=== PATIENT | female | born 1945 | race Caucasian/White ===

== ENCOUNTER 2021-03-03 11:55 | Emergency (ER) | payer MEDICARE, BC ==
[2021-03-03] MEDS ORDERED: Sodium Chloride 0.9% 10 ML Syringe FLUSH PRN (12:39)
--- NOTE | 2021-03-03 14:01 | EDM.PDOC ---
ED HPI GENERAL MEDICAL PROBLEM - General Chief Complaint: Diabetic Complaint Stated Complaint: [facility] Time Seen by Provider: 03/03/21 12:22 Source of Information: Reports: Patient History Limitations: Reports: No Limitations - History of Present Illness INITIAL COMMENTS - FREE TEXT/NARRATIVE: 75-year-old female presents the emergency department by way of [facility] with complaints of hypoglycemia. She states that she woke this morning and was unable to move her left side of her body. She then called the ambulance and when they arrived her blood sugar was 23. They did give her oral glucose tablets x 4 doses and blood sugar came up to 59 when she arrived in the emergency department. She states she feels 100% better and is not having any left-sided deficits. All of her weakness has resolved. Patient states that she takes 2 mg of glyburide daily and she does not check her blood sugars routinely. She states that prior to this morning she felt just fine. She has not had any recent fever, chills, nausea, vomiting or diarrhea. She denies having any cough or shortness of breath. She does admit to smoking daily. She is a [id number] smoker. She states her primary care provider is Dr. Pastor. Treatments SITE PLANNER: Reports: Glucagon - Related Data Allergies Allergy/AdvReac Type Severity Reaction Status Date / Time No Known Allergies Allergy Verified 03/03/21 12:15 Home Meds: Home Meds Calcium Carbonate [Calcium] 600 mg PO DAILY 03/03/21 [History] Cholecalciferol (Vitamin D3) [Vitamin D3] 1,000 unit PO DAILY 03/03/21 [History] Clopidogrel [Plavix] 75 mg PO DAILY 03/03/21 [History] Docusate Sodium 100 mg PO DAILY 03/03/21 [History] Flaxseed Oil 1 tab PO DAILY 03/03/21 [History] Gabapentin [Neurontin] 300 mg PO BEDTIME 03/03/21 [History] Glimepiride 2 mg PO DAILY 03/03/21 [History] Pantoprazole Sodium 40 mg PO DAILY 03/03/21 [History] Twe699/Iron/FA/O3/Dha/Epa/Fish [ Multi-Dha Softgel] 1 each PO DAILY 03/03/21 [History] Rosuvastatin Calcium 20 mg PO DAILY 03/03/21 [History] Sennosides [Senna Lax] 8.6 mg PO BID 03/03/21 [History] Sertraline HCl 25 mg PO DAILY 03/03/21 [History] calcium polycarbophiL [Fibercon] 1 tab PO DAILY 03/03/21 [History] traMADol HCl [Tramadol HCl] 100 mg PO Q6H 03/03/21 [History] Past Medical History HEENT History: Reports: Impaired Vision Cardiovascular History: Reports: High Cholesterol Respiratory History: Reports: COPD Gastrointestinal History: Reports: GERD 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 Carotid artery "cleaned out." Social & Family History - Tobacco Use Tobacco Use Status *Q: Current Every Day Tobacco User Years of Tobacco use: 60 Packs/Tins Daily: 0.1 - Caffeine Use Caffeine Use: Reports: Coffee - Recreational Drug Use Recreational Drug Use: No ED ROS GENERAL - Review of Systems Review Of Systems: Comprehensive ROS is negative, except as noted in HPI. ED EXAM GENERAL NO PERIP PULSE - Physical Exam Exam: See Below Exam Limited By: No Limitations General Appearance: Alert, WD/WN, No Apparent Distress Eye Exam: Bilateral Eye: EOMI, PERRL Ears: Normal External Exam, Hearing Grossly Normal Nose: Normal Inspection, Normal Mucosa Throat/Mouth: Normal Inspection, Normal Lips, Normal Voice, No Airway Compromise. No: Normal Oropharynx (Dry, tongue is black and likely due to smoking) Head: Atraumatic, Normocephalic Neck: Normal Inspection, Supple, Non-Tender Respiratory/Chest: No Respiratory Distress, Lungs Clear, Normal Breath Sounds, No Accessory Muscle Use, Chest Non-Tender Cardiovascular: Normal Peripheral Pulses, Regular Rate, Rhythm, No Edema, No Murmur GI/Abdominal: Normal Bowel Sounds, Soft, Non-Tender, No Distention (Female) Exam: Deferred Rectal (Female) Exam: Deferred Back Exam: Normal Inspection, Full Range of Motion Extremities: Normal Inspection, Normal Range of Motion, Non-Tender, No Pedal Edema, Normal Capillary Refill Neurological: Alert, Oriented, CN II-XII Intact, Normal Cognition, Normal Gait Psychiatric: Normal Affect, Normal Mood Skin Exam: Warm, Dry, Intact, Normal Color, No Rash Lymphatic: No Adenopathy Course - Vital Signs Text/Narrative:: As stated above, patient had a blood sugar of 23 upon waking this morning. She states she had left-sided deficits however when she was treated for her hypoglycemia deficits all resolved. When she arrived in the emergency department blood sugar was 59. Ordered for the patient to have some orange juice and crackers and we will recheck her blood sugar. Have also ordered labs to include a CBC, CMP, CRP, and a hemoglobin A1c. We will also get a urinalysis with micro and culture if indicated. Patient states she feels back to her baseline. Last Recorded V/S: Last Vital Signs Temp 96.5 F L 03/03/21 12:12 Pulse 69 03/03/21 12:12 Resp 16 03/03/21 12:12 BP 153/47 H 03/03/21 12:12 Pulse Ox 96 03/03/21 12:12 - Orders/Labs/Meds Orders: Active Orders 24 hr Category Date Time Status Sodium Chloride 0.9% [Saline Flush] Med 03/03/21 12:39 Active 10 ml FLUSH ASDIRECTED PRN Saline Lock Insert [OM.PC] Stat Oth 03/03/21 12:39 Ordered Medication Orders Sodium Chloride (Sodium Chloride 0.9% 10 Ml Syringe) 10 ml FLUSH ASDIRECTED PRN PRN Reason: Keep Vein Open Last Admin: 03/03/21 13:43 Dose: 10 ml Documented by: OPAL Labs: Laboratory Tests 03/03/21 03/03/21 03/03/21 Range/Units 12:03 12:05 12:05 WBC 8.24 (3.98-10.04) K/mm3 RBC 4.71 (3.98-5.22) M/mm3 Hgb 14.1 D (11.2-15.7) gm/dl Hct 43.1 (34.1-44.9) % MCV 91.5 (79.4-94.8) fl MCH 29.9 (25.6-32.2) pg MCHC 32.7 (32.2-35.5) g/dl RDW Std Deviation 55.6 H (36.4-46.3) fL Plt Count 171 L (182-369) K/mm3 MPV 10.7 (9.4-12.3) fl Neut % (Auto) 74.2 H (34.0-71.1) % Lymph % (Auto) 19.4 (19.3-51.7) % Tyrrell % (Auto) 5.9 (4.7-12.5) % Eos % (Auto) 0.2 L (0.7-5.8) Baso % (Auto) 0.1 (0.1-1.2) % Neut # (Auto) 6.10 (1.56-6.13) K/mm3 Lymph # (Auto) 1.60 (1.18-3.74) K/mm3 Tyrrell # (Auto) 0.49 H (0.24-0.36) K/mm3 Eos # (Auto) 0.02 L (0.04-0.36) K/mm3 Baso # (Auto) 0.01 (0.01-0.08) K/mm3 Sodium 145 (136-145) mEq/L Potassium 4.5 (3.5-5.1) mEq/L Chloride 107 (98-107) mEq/L Carbon Dioxide 31 (21-32) mEq/L Anion Gap 11.5 (5-15) BUN 12 (7-18) mg/dL Creatinine 0.7 (0.55-1.02) mg/dL Est Cr Clr Drug Dosing 50.22 mL/min Estimated GFR (MDRD) > 60 (>60) mL/min BUN/Creatinine Ratio 17.1 (14-18) Glucose 84 (70-99) mg/dL POC Glucose 59 L (70-99) mg/dL Hemoglobin A1c ( - 5.6) % Calcium 10.4 H D (8.5-10.1) mg/dL Magnesium 2.0 (1.8-2.4) mg/dL Total Bilirubin 0.2 (0.2-1.0) mg/dL AST 23 (15-37) U/L ALT 18 (14-59) U/L Alkaline Phosphatase 84 (46-116) U/L C-Reactive Protein 0.5 (<1.0) mg/dL Total Protein 7.9 (6.4-8.2) g/dl Albumin 3.6 (3.4-5.0) g/dl Globulin 4.3 gm/dL Albumin/Globulin Ratio 0.8 L (1-2) Urine Color (Yellow) Urine Appearance (Clear) Urine pH (5.0-8.0) Ur Specific Anabel (1.005-1.030) Urine Protein (Negative) Urine Glucose (UA) (Negative) Urine Ketones (Negative) Urine Occult Blood (Negative) Urine Nitrite (Negative) Urine Bilirubin (Negative) Urine Urobilinogen (0.2-1.0) Ur Leukocyte Esterase (Negative) 03/03/21 03/03/21 03/03/21 Range/Units 12:27 12:39 14:03 WBC (3.98-10.04) K/mm3 RBC (3.98-5.22) M/mm3 Hgb (11.2-15.7) gm/dl Hct (34.1-44.9) % MCV (79.4-94.8) fl MCH (25.6-32.2) pg MCHC (32.2-35.5) g/dl RDW Std Deviation (36.4-46.3) fL Plt Count (182-369) K/mm3 MPV (9.4-12.3) fl Neut % (Auto) (34.0-71.1) % Lymph % (Auto) (19.3-51.7) % Tyrrell % (Auto) (4.7-12.5) % Eos % (Auto) (0.7-5.8) Baso % (Auto) (0.1-1.2) % Neut # (Auto) (1.56-6.13) K/mm3 Lymph # (Auto) (1.18-3.74) K/mm3 Tyrrell # (Auto) (0.24-0.36) K/mm3 Eos # (Auto) (0.04-0.36) K/mm3 Baso # (Auto) (0.01-0.08) K/mm3 Sodium (136-145) mEq/L Potassium (3.5-5.1) mEq/L Chloride (98-107) mEq/L Carbon Dioxide (21-32) mEq/L Anion Gap (5-15) BUN (7-18) mg/dL Creatinine (0.55-1.02) mg/dL Est Cr Clr Drug Dosing mL/min Estimated GFR (MDRD) (>60) mL/min BUN/Creatinine Ratio (14-18) Glucose (70-99) mg/dL POC Glucose 185 H (70-99) mg/dL Hemoglobin A1c 6.0 H ( - 5.6) % Calcium (8.5-10.1) mg/dL Magnesium (1.8-2.4) mg/dL Total Bilirubin (0.2-1.0) mg/dL AST (15-37) U/L ALT (14-59) U/L Alkaline Phosphatase (46-116) U/L C-Reactive Protein (<1.0) mg/dL Total Protein (6.4-8.2) g/dl Albumin (3.4-5.0) g/dl Globulin gm/dL Albumin/Globulin Ratio (1-2) Urine Color Yellow (Yellow) Urine Appearance Clear (Clear) Urine pH 7.5 (5.0-8.0) Ur Specific Anabel 1.020 (1.005-1.030) Urine Protein Negative (Negative) Urine Glucose (UA) Negative (Negative) Urine Ketones Negative (Negative) Urine Occult Blood Negative (Negative) Urine Nitrite Negative (Negative) Urine Bilirubin Negative (Negative) Urine Urobilinogen 0.2 (0.2-1.0) Ur Leukocyte Esterase Negative (Negative) Meds: Medications Generic Name Dose Route Start Last Admin Trade Name Freannette PRN Reason Stop Dose Admin Sodium Chloride 10 ml 03/03/21 12:39 03/03/21 13:43 Sodium Chloride 0.9% 10 Ml Syringe FLUSH 10 ml ASDIRECTED PRN Administration Keep Vein Open Discontinued Medications Generic Name Dose Route Start Last Admin Trade Name Freannette PRN Reason Stop Dose Admin Acetaminophen 650 mg 03/03/21 14:22 Acetaminophen 325 Mg Tab PO 03/03/21 14:23 NOW ONE Tramadol HCl 100 mg 03/03/21 14:22 Tramadol 50 Mg Tab PO 03/03/21 14:23 ONETIME ONE - Re-Assessments/Exams Free Text/Narrative Re-Assessment/Exam: 03/03/21 14:24 Hematology reveals a WBC of 8.24, hemoglobin 14.1, hematocrit 43.1, platelet count 171 Chemistry reveals a sodium of 145, potassium of 45, carbon dioxide 31, anion gap 11.5, BUN 12, creatinine 0.7, glucose 84, hemoglobin A1c 6.0, calcium 10.4, magnesium 2.0, C-reactive protein 0.5 Urinalysis is unremarkable. 03/03/21 14:24 Patient is requesting her home dose of tramadol and Tylenol for back pain. 03/03/21 14:25 I spoke with the patient's primary care provider, Dr. Pastor, and he states it would be appropriate to discontinue the patient's Amaryl for now. She will need to follow-up with him in about a week for reevaluation. I discussed this with the patient and she does verbalize understanding. She will then be discharged to home. Departure - Departure Time of Disposition: 14:27 Disposition: Home, Self-Care 01 Condition: Good Clinical Impression: Hypoglycemia - Discharge Information Instructions: Hypoglycemia, [id number] Referrals: Jomar Terrazas MD [Primary Care Provider] - Forms: ED Department Discharge Additional Instructions: You were seen in the emergency department today with low blood sugar. By the time he arrived to the emergency department your blood sugar was 59. You were given crackers and juice to drink and this did bring your blood sugar up. You state that all of the strokelike symptoms that you initially felt this morning upon waking had resolved once your blood sugar returned to normal. Labs were completed which did not show anything remarkable. There is no sign of infection anywhere. Urine was collected and this was unremarkable. There is no sign of infection in your urine. You will need to stop taking your glimepiride, your diabetic medication, until you follow-up with Dr. Pastor in 1 week. It would be a good idea to check your blood sugar a couple of times daily and keep a log of this to bring to your appointment with Dr. Pastor. Should your condition worsen or change, do not hesitate returning to the emergency department. Sepsis Event Note (ED) - Evaluation Sepsis Screening Result: No Definite Risk - Focused Exam Vital Signs: Vital Signs Temp Pulse Resp BP Pulse Ox 03/03/21 12:12 96.5 F L 69 16 153/47 H 96 - My Orders Last 24 Hours: My Active Orders 03/03/21 12:39 Sodium Chloride 0.9% [Saline Flush] 10 ml FLUSH ASDIRECTED PRN Saline Lock Insert [OM.PC] Stat - Assessment/Plan Last 24 Hours: My Active Orders 03/03/21 12:39 Sodium Chloride 0.9% [Saline Flush] 10 ml FLUSH ASDIRECTED PRN Saline Lock Insert [OM.PC] Stat
[2021-03-03] MEDS ORDERED: traMADol 50 MG Tab PO ONE (14:22)
[2021-03-03] MEDS ORDERED: Acetaminophen 325 MG Tab PO ONE (14:22)
== END 2021-03-03 14:45 | disposition home or self-care (01) ==
LOC: JD.ED 11:55
DX: E16.2 Hypoglycemia, unspecified (principal); E78.00 Pure hypercholesterolemia, unspecified; J44.9 Chronic obstructive pulmonary disease, unspecified; K21.9 Gastro-esophageal reflux disease without esophagitis; F17.210 Nicotine dependence, cigarettes, uncomplicated; Z79.01 Long term (current) use of anticoagulants; Z79.02 Long term (current) use of antithrombotics/antiplatelets; Z79.899 Other long term (current) drug therapy
CPT/HCPCS: 36415; 80053; 81003; 82947; 83036; 83735; 85025; 86140; 99284; A9270; 99283

== ENCOUNTER 2021-05-20 16:54 | Emergency (ER) | payer MEDICARE, BC ==
[2021-05-20] MEDS ORDERED: Sodium Chloride 0.9% 10 ML Syringe FLUSH PRN (17:38)
[2021-05-20] MEDS ORDERED: Lidocaine/EPINEPHrine/Tetracaine Soln 1 ML TOP ONE (17:39)
--- NOTE | 2021-05-20 18:13 | EDM.PDOC ---
ED HPI GENERAL MEDICAL PROBLEM - General Chief Complaint: Lower Extremity Injury/Pain Stated Complaint: LEFT KNEE PAIN Time Seen by Provider: 05/20/21 17:14 Source of Information: Reports: Patient History Limitations: Reports: No Limitations - History of Present Illness INITIAL COMMENTS - FREE TEXT/NARRATIVE: The patient presents with a UTI and left knee redness and swelling. The patient said she noticed some redness and swelling to her left knee a few days ago and it is worse today. She has no fever or chills. She did not injure it in any way. She did get some foul smelling drainage out of it today. She has been having some urgency and burning with urination for a few days. She has no cough, congestion, runny nose, abdominal pain, nausea or vomiting. She was sen at the [facility] and sent over for more care. Onset: Gradual Duration: Day(s): Location: Reports: Lower Extremity, Right (knee) Quality: Reports: Sharp Severity: Moderate Improves with: Reports: Immobilization Worsens with: Reports: Movement Context: Denies: Trauma Associated Symptoms: Reports: No Other Symptoms Treatments NARCOTICS AND VICE DETECTIVE: Reports: Acetaminophen Left Knee Pain Score (Numeric/FACES): 9 - Related Data Allergies Allergy/AdvReac Type Severity Reaction Status Date / Time No Known Allergies Allergy Verified 05/20/21 17:19 Home Meds: Home Meds Calcium Carbonate [Calcium] 600 mg PO DAILY 03/03/21 [History] Cholecalciferol (Vitamin D3) [Vitamin D3] 1,000 unit PO DAILY 03/03/21 [History] Clopidogrel [Plavix] 75 mg PO DAILY 03/03/21 [History] Docusate Sodium 100 mg PO DAILY 03/03/21 [History] Gabapentin [Neurontin] 300 mg PO BEDTIME 03/03/21 [History] Glimepiride 2 mg PO DAILY 03/03/21 [History] Pantoprazole Sodium 40 mg PO DAILY 03/03/21 [History] Rosuvastatin Calcium 20 mg PO DAILY 03/03/21 [History] Sennosides [Senna Lax] 8.6 mg PO BID 03/03/21 [History] Sertraline HCl 25 mg PO DAILY 03/03/21 [History] calcium polycarbophiL [Fibercon] 1 tab PO DAILY 03/03/21 [History] flaxseed oiL [Flaxseed Oil] 1 tab PO DAILY 03/03/21 [History] traMADol HCl [Tramadol HCl] 100 mg PO Q6H 03/03/21 [History] cephALEXin [Keflex] 500 mg PO Q6H #40 cap 05/20/21 [Rx] Past Medical History HEENT History: Reports: Impaired Vision Cardiovascular History: Reports: High Cholesterol, Hypertension Respiratory History: Reports: COPD Gastrointestinal History: Reports: GERD 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 Carotid artery "cleaned out." Social & Family History - Tobacco Use Tobacco Use Status *Q: Current Every Day Tobacco User Years of Tobacco use: 55 Packs/Tins Daily: 0.2 - Caffeine Use Caffeine Use: Reports: Coffee - Recreational Drug Use Recreational Drug Use: No Review of Systems - Review of Systems Review Of Systems: See Below Constitutional: Reports: No Symptoms Eyes: Reports: No Symptoms Ears: Reports: No Symptoms Nose: Reports: No Symptoms Mouth/Throat: Reports: No Symptoms Respiratory: Reports: No Symptoms Cardiovascular: Reports: No Symptoms GI/Abdominal: Reports: No Symptoms Musculoskeletal: Reports: Other (Swelling and pain of right knee) ED EXAM, GENERAL - Physical Exam Exam: See Below Exam Limited By: No Limitations General Appearance: Alert, No Apparent Distress Ears: Normal External Exam Nose: Normal Inspection Head: Atraumatic, Normocephalic Neck: Normal Inspection Respiratory/Chest: No Respiratory Distress, Lungs Clear, Normal Breath Sounds Cardiovascular: Regular Rate, Rhythm, No Edema, No Murmur GI/Abdominal: Soft, Non-Tender, No Organomegaly, No Mass Back Exam: Normal Inspection Extremities: Other (Erythema and edema to the left knee with an area of fluctuance to the prepatelar region.) Neurological: Alert, Oriented, No Motor/Sensory Deficits ED TRAUMA EXTREMITY PROCEDURES - I&D Site: Left knee Skin Prep: Other (Chlor) Local Anesthesia: Lidocaine: Other (LET) Area Incised With: Needle Drainage: Purulent Probed to Break Up Loculations: No Complications: No Course - Vital Signs Last Recorded V/S: Last Vital Signs Temp 98.6 F 05/20/21 17:16 Pulse 72 05/20/21 17:16 Resp 16 05/20/21 17:16 BP 112/67 05/20/21 17:16 Pulse Ox 93 L 05/20/21 17:16 - Orders/Labs/Meds Orders: Active Orders 24 hr Category Date Time Status Cardiac Monitoring [RC] . DIRECTED Care 05/20/21 17:38 Active Peripheral IV Care [RC] . DIRECTED Care 05/20/21 17:39 Active BLOOD CULTURE [MREF] Stat Lab 05/20/21 18:10 Received BLOOD CULTURE [MREF] Stat Lab 05/20/21 18:20 Received Sodium Chloride 0.9% [Saline Flush] Med 05/20/21 17:38 Active 10 ml FLUSH ASDIRECTED PRN Blood Culture x2 Reflex Set [OM.PC] Stat Oth 05/20/21 17:39 Ordered Peripheral IV Insertion Adult [OM.PC] Stat Oth 05/20/21 17:38 Ordered Medication Orders Sodium Chloride (Sodium Chloride 0.9% 10 Ml Syringe) 10 ml FLUSH ASDIRECTED PRN PRN Reason: Keep Vein Open Labs: Laboratory Tests 05/20/21 05/20/21 05/20/21 Range/Units 18:10 18:10 18:10 WBC 10.49 H (3.98-10.04) K/mm3 RBC 3.80 L (3.98-5.22) M/mm3 Hgb 11.7 D (11.2-15.7) gm/dl Hct 35.5 (34.1-44.9) % MCV 93.4 (79.4-94.8) fl MCH 30.8 (25.6-32.2) pg MCHC 33.0 (32.2-35.5) g/dl RDW Std Deviation 57.4 H (36.4-46.3) fL Plt Count 127 L (182-369) K/mm3 MPV 10.8 (9.4-12.3) fl Neut % (Auto) 79.2 H (34.0-71.1) % Lymph % (Auto) 10.8 L (19.3-51.7) % Hand % (Auto) 9.7 (4.7-12.5) % Eos % (Auto) 0 L (0.7-5.8) Baso % (Auto) 0.1 (0.1-1.2) % Neut # (Auto) 8.31 H (1.56-6.13) K/mm3 Lymph # (Auto) 1.13 L (1.18-3.74) K/mm3 Hand # (Auto) 1.02 H (0.24-0.36) K/mm3 Eos # (Auto) 0.00 L (0.04-0.36) K/mm3 Baso # (Auto) 0.01 (0.01-0.08) K/mm3 Manual Slide Review Abnormal smear ESR (0-20) mm/hr Sodium 133 L D (136-145) mEq/L Potassium 3.5 (3.5-5.1) mEq/L Chloride 96 L (98-107) mEq/L Carbon Dioxide 30 (21-32) mEq/L Anion Gap 10.5 (5-15) BUN 23 H (7-18) mg/dL Creatinine 1.1 H (0.55-1.02) mg/dL Est Cr Clr Drug Dosing 34.81 mL/min Estimated GFR (MDRD) 48 (>60) mL/min BUN/Creatinine Ratio 20.9 H (14-18) Glucose 210 H (70-99) mg/dL Lactic Acid 1.2 (0.4-2.0) mmol/L Calcium 9.3 (8.5-10.1) mg/dL Total Bilirubin 0.4 (0.2-1.0) mg/dL AST 33 (15-37) U/L ALT 24 (14-59) U/L Alkaline Phosphatase 81 (46-116) U/L C-Reactive Protein 24.4 H* (<1.0) mg/dL Total Protein 6.7 (6.4-8.2) g/dl Albumin 2.8 L (3.4-5.0) g/dl Globulin 3.9 gm/dL Albumin/Globulin Ratio 0.7 L (1-2) SARS-CoV-2 RNA (KANE) (NEGATIVE) 05/20/21 05/20/21 Range/Units 18:10 18:17 WBC (3.98-10.04) K/mm3 RBC (3.98-5.22) M/mm3 Hgb (11.2-15.7) gm/dl Hct (34.1-44.9) % MCV (79.4-94.8) fl MCH (25.6-32.2) pg MCHC (32.2-35.5) g/dl RDW Std Deviation (36.4-46.3) fL Plt Count (182-369) K/mm3 MPV (9.4-12.3) fl Neut % (Auto) (34.0-71.1) % Lymph % (Auto) (19.3-51.7) % Hand % (Auto) (4.7-12.5) % Eos % (Auto) (0.7-5.8) Baso % (Auto) (0.1-1.2) % Neut # (Auto) (1.56-6.13) K/mm3 Lymph # (Auto) (1.18-3.74) K/mm3 Hand # (Auto) (0.24-0.36) K/mm3 Eos # (Auto) (0.04-0.36) K/mm3 Baso # (Auto) (0.01-0.08) K/mm3 Manual Slide Review ESR 29 H (0-20) mm/hr Sodium (136-145) mEq/L Potassium (3.5-5.1) mEq/L Chloride (98-107) mEq/L Carbon Dioxide (21-32) mEq/L Anion Gap (5-15) BUN (7-18) mg/dL Creatinine (0.55-1.02) mg/dL Est Cr Clr Drug Dosing mL/min Estimated GFR (MDRD) (>60) mL/min BUN/Creatinine Ratio (14-18) Glucose (70-99) mg/dL Lactic Acid (0.4-2.0) mmol/L Calcium (8.5-10.1) mg/dL Total Bilirubin (0.2-1.0) mg/dL AST (15-37) U/L ALT (14-59) U/L Alkaline Phosphatase (46-116) U/L C-Reactive Protein (<1.0) mg/dL Total Protein (6.4-8.2) g/dl Albumin (3.4-5.0) g/dl Globulin gm/dL Albumin/Globulin Ratio (1-2) SARS-CoV-2 RNA (KANE) Negative (NEGATIVE) Meds: Medications Generic Name Dose Route Start Last Admin Trade Name Sakshi PRN Reason Stop Dose Admin Sodium Chloride 10 ml 05/20/21 17:38 Sodium Chloride 0.9% 10 Ml Syringe FLUSH ASDIRECTED PRN Keep Vein Open Discontinued Medications Generic Name Dose Route Start Last Admin Trade Name Sakshi PRN Reason Stop Dose Admin Ceftriaxone Sodium 2 gm/ 100 mls @ 200 mls/hr 05/20/21 18:51 Sodium Chloride IV 05/20/21 19:20 ONETIME ONE Lidocaine/Tetracaine 1 ml 05/20/21 17:39 05/20/21 18:00 Lidocaine/Epinephrine/Tetracaine Soln 1 Ml TOP 05/20/21 17:40 1 ml ONETIME ONE Administration - Re-Assessments/Exams Free Text/Narrative Re-Assessment/Exam: 05/20/21 18:13 I ordered an IV saline lock, blood cultures, rocephin 2 grams IV, lactic acid and labs. I will have my nurse put some let on the wound and I will try to get some fluid from the abscess. 05/20/21 18:53 I put some LET on his knee and I use a needle to try to drain the abscess. I got very little out and not enough to send for a sample. 05/20/21 19:28 Her WBC was elevated at 10.4. Her Na was a little low at 133. Her creatinine was elevated at 1.1. Her glucose was 200. Her lactic acid was normal at 1.2. Her CRP was elevated at 24.1. She was COVID 19 negative. I ordered rocephin 2 grams IV. I wanted to admit the patient but she did not want to be admitted. I will get her on keflex 4 times per day for 10 days. Departure - Departure Time of Disposition: 19:35 Disposition: Home, Self-Care 01 Condition: Good Clinical Impression: Cellulitis and abscess of left leg UTI (urinary tract infection) Qualifiers: Urinary tract infection type: site unspecified Hematuria presence: without hematuria Qualified Code(s): N39.0 - Urinary tract infection, site not specified - Discharge Information *PRESCRIPTION DRUG MONITORING PROGRAM REVIEWED*: Not Applicable *COPY OF PRESCRIPTION DRUG MONITORING REPORT IN PATIENT SAMUEL: Not Applicable Prescriptions: cephALEXin [Keflex] 500 mg PO Q6H #40 cap Referrals: Jomar Terrazas MD [Primary Care Provider] - 1 Week Forms: ED Department Discharge Additional Instructions: Drink plenty of fluids. Take the keflex 4 times per day for 10 days. Put warm compresses on your knee 3 to 4 times per day. Take tylenol or motrin for any fever or pain. Please return if you are worse. Sepsis Event Note (ED) - Evaluation Sepsis Screening Result: No Definite Risk - Focused Exam Vital Signs: Vital Signs Temp Pulse Resp BP Pulse Ox 05/20/21 17:16 98.6 F 72 16 112/67 93 L - My Orders Last 24 Hours: My Active Orders 05/20/21 17:38 Cardiac Monitoring [RC] . DIRECTED Sodium Chloride 0.9% [Saline Flush] 10 ml FLUSH ASDIRECTED PRN Peripheral IV Insertion Adult [OM.PC] Stat 05/20/21 17:39 Peripheral IV Care [RC] . DIRECTED Blood Culture x2 Reflex Set [OM.PC] Stat 05/20/21 18:10 BLOOD CULTURE [MREF] Stat 05/20/21 18:20 BLOOD CULTURE [MREF] Stat - Assessment/Plan Last 24 Hours: My Active Orders 05/20/21 17:38 Cardiac Monitoring [RC] . DIRECTED Sodium Chloride 0.9% [Saline Flush] 10 ml FLUSH ASDIRECTED PRN Peripheral IV Insertion Adult [OM.PC] Stat 05/20/21 17:39 Peripheral IV Care [RC] . DIRECTED Blood Culture x2 Reflex Set [OM.PC] Stat 05/20/21 18:10 BLOOD CULTURE [MREF] Stat 05/20/21 18:20 BLOOD CULTURE [MREF] Stat
[2021-05-20] MEDS ORDERED: cefTRIAXone 2 GM in Sodium Chloride 0.9% 100 ML IV ONE (18:51)
== END 2021-05-20 20:02 | disposition home or self-care (01) ==
LOC: JD.ED 16:54
DX: L03.116 Cellulitis of left lower limb (principal); L02.416 Cutaneous abscess of left lower limb; N39.0 Urinary tract infection, site not specified; E78.00 Pure hypercholesterolemia, unspecified; I10 Essential (primary) hypertension; J44.9 Chronic obstructive pulmonary disease, unspecified; K21.9 Gastro-esophageal reflux disease without esophagitis; Z72.0 Tobacco use; Z20.822 Contact with and (suspected) exposure to COVID-19; Z79.02 Long term (current) use of antithrombotics/antiplatelets; Z79.899 Other long term (current) drug therapy
CPT/HCPCS: 10060; 36415; 80053; 83605; 85025; 85652; 86140; 87040; 96365; 99283; J0696; U0002

== ENCOUNTER → 2022-03-09 | Day surgery (SDC) | payer MEDICARE, BC ==
[~2022-03-09] MED LIST: Albuterol/Ipratropium 3.0-0.5 MG/3 ML Neb Soln NEB PRN; Bupivacaine 0.25% 10 ML SDV ONE; Ketamine 500 mg/10 ML MDV ONE; Lactated Ringers 1,000 ML IV SCH; Lidocaine 1% 5 ML VIAL ONE; Lidocaine 1%/Sod Bicarbonate in NS 8.4% 1 ML Syringe IDERM PRN; Midazolam 1 MG/ML 2 ML SDV ONE; Ondansetron 4 MG/2 ML SDV IVPUSH PRN; Ondansetron 4 MG/2 ML SDV ONE; Propofol 200 MG/20 ML SDV ONE; Sodium Chloride 0.9% 10 ML Syringe FLUSH PRN; Sodium Chloride 0.9% 10 ML Syringe FLUSH SCH; fentaNYL 100 MCG/2 ML SDV IVPUSH PRN; fentaNYL 100 MCG/2 ML SDV ONE; traMADol 50 MG Tab PO ONE
[2022-03-09] MEDS: HYDROmorphone 0.5 MG/0.5 ML Syringe IVPUSH PRN ×2 (14:15→14:25)
== END | disposition home or self-care (01) ==
LOC: JD.SDS 10:36
PROVIDERS: ATTEND Orthopaedic Surgery
DX: M70.41 Prepatellar bursitis, right knee (principal); M06.36 Rheumatoid nodule, knee; F17.210 Nicotine dependence, cigarettes, uncomplicated; F41.9 Anxiety disorder, unspecified; I10 Essential (primary) hypertension; E78.00 Pure hypercholesterolemia, unspecified; M81.0 Age-related osteoporosis without current pathological fracture; E11.51 Type 2 diabetes mellitus with diabetic peripheral angiopathy without gangrene; J44.9 Chronic obstructive pulmonary disease, unspecified; E11.42 Type 2 diabetes mellitus with diabetic polyneuropathy; M06.9 Rheumatoid arthritis, unspecified; Z79.899 Other long term (current) drug therapy; Z79.84 Long term (current) use of oral hypoglycemic drugs; Z98.890 Other specified postprocedural states; Z79.02 Long term (current) use of antithrombotics/antiplatelets; Z88.5 Allergy status to narcotic agent
CPT/HCPCS: 27340; 82947; 88305; 88311; 93005; A9270; J1170; J2405; J2704; J3010; J3370; J3490; J7050; J7120; 01320; 93010; 99100; J2250; J7620-GY

== ENCOUNTER 2022-04-21 09:18 | Day surgery (SDC) | payer MEDICARE, BC ==
[~2022-04-21 09:18] MED LIST changes: -Albuterol/Ipratropium 3.0-0.5 MG/3 ML Neb Soln NEB PRN; -Bupivacaine 0.25% 10 ML SDV ONE; -Ketamine 500 mg/10 ML MDV ONE; -Lidocaine 1% 5 ML VIAL ONE; -Midazolam 1 MG/ML 2 ML SDV ONE; -Ondansetron 4 MG/2 ML SDV IVPUSH PRN; -Ondansetron 4 MG/2 ML SDV ONE; -Propofol 200 MG/20 ML SDV ONE; -fentaNYL 100 MCG/2 ML SDV IVPUSH PRN; -fentaNYL 100 MCG/2 ML SDV ONE; -traMADol 50 MG Tab PO ONE
[2022-04-21] MEDS ORDERED: Bupivacaine 0.25% 10 ML SDV ONE (09:32)
[2022-04-21] MEDS ORDERED: Ondansetron 4 MG/2 ML SDV IVPUSH PRN (09:39)
[2022-04-21] MEDS ORDERED: fentaNYL 100 MCG/2 ML SDV IVPUSH PRN (09:39)
[2022-04-21] MEDS ORDERED: fentaNYL 100 MCG/2 ML SDV ONE (09:46)
[2022-04-21] MEDS ORDERED: Midazolam 1 MG/ML 2 ML SDV ONE (09:46)
[2022-04-21] MEDS ORDERED: Propofol 200 MG/20 ML SDV ONE (09:46)
[2022-04-21] MEDS ORDERED: Lidocaine 1% 2 ML ONE (09:48)
[2022-04-21] MEDS ORDERED: ceFAZolin 2 GM Vial ONE (10:55)
[2022-04-21] MEDS ORDERED: Ondansetron 4 MG/2 ML SDV ONE (11:27)
[2022-04-21] MEDS ORDERED: traMADol 50 MG Tab PO ONE (12:00)
== END 2022-04-21 13:10 | disposition home or self-care (01) ==
LOC: JD.SDS 09:18
PROVIDERS: ATTEND Orthopaedic Surgery
DX: M70.42 Prepatellar bursitis, left knee (principal); R22.42 Localized swelling, mass and lump, left lower limb; I10 Essential (primary) hypertension; E11.42 Type 2 diabetes mellitus with diabetic polyneuropathy; E78.00 Pure hypercholesterolemia, unspecified; E61.1 Iron deficiency; F41.9 Anxiety disorder, unspecified; M19.90 Unspecified osteoarthritis, unspecified site; J44.9 Chronic obstructive pulmonary disease, unspecified; K21.9 Gastro-esophageal reflux disease without esophagitis; M81.0 Age-related osteoporosis without current pathological fracture; F17.200 Nicotine dependence, unspecified, uncomplicated; F32.A Depression, unspecified; K58.9 Irritable bowel syndrome, unspecified; Z88.5 Allergy status to narcotic agent; Z79.84 Long term (current) use of oral hypoglycemic drugs; Z79.899 Other long term (current) drug therapy; Z98.890 Other specified postprocedural states
CPT/HCPCS: 27340; 82947; J0690; J2250; J2405; J2704; J3010; J3490; J7120; 99100

== ENCOUNTER 2022-09-27 16:04 | Inpatient (IN) | payer MEDICARE, BC ==
[2022-09-27] MEDS ORDERED: Sodium Chloride 0.9% 1,000 ML IV ONE (18:52)
[2022-09-27] MEDS ORDERED: Iopamidol 612 MG/ML 100 ML Bottle IVPUSH ONE (19:13)
[2022-09-27] MEDS ORDERED: Sodium Chloride 0.9% 10 ML Syringe FLUSH ONE (19:15)
[2022-09-28] MEDS ORDERED: Bisacodyl 10 MG Supp RECTAL PRN (11:27)
[2022-09-28] MEDS ORDERED: Bisacodyl 10 MG Supp RECTAL ONE (11:27)
[2022-09-28] MEDS ORDERED: Morphine 2 MG/ML SYRINGE IVPUSH PRN (11:29)
[2022-09-28] MEDS ORDERED: Ondansetron 4 MG/2 ML SDV IV PRN (11:29)
[2022-09-28] MEDS ORDERED: Potassium Chloride 20 MEQ Tab.ER PO SCH (11:30)
[2022-09-28] MEDS ORDERED: Morphine 2 MG/ML SYRINGE IVPUSH ONE (11:30)
[2022-09-28] MEDS ORDERED: Glycerin Adult 2 GM Supp RECTAL ONE (11:30)
[2022-09-28] MEDS ORDERED: Heparin Sodium 5,000 Units/ML Vial SUBCUT SCH (12:00)
[2022-09-28] MEDS: Polyethylene Glycol 3350 Powder 17 GM Packet PO SCH (12:05)
[2022-09-28] MEDS: Potassium Bicarbonate/Cit Ac 20 MEQ Effervescent Tab PO SCH ×2 (12:54→20:00)
[2022-09-28] MEDS ORDERED: Albuterol 0.083% 2.5 MG/3 ML Neb Soln NEB PRN (14:36)
[2022-09-28] MEDS: Nicotine 14 MG/24 Hr Patch TRDERM SCH (14:53)
[2022-09-28 15:09] LABS: HEMOGLOBIN A1C 6.3 %
[2022-09-28] MEDS: Insulin Lispro 100 Unit/ML 3 ML KwikPen SUBCUT SCH ×2 (17:52→20:16)
[2022-09-28] MEDS: Gabapentin 300 MG Cap PO SCH (20:00)
[2022-09-28] MEDS: oxyCODONE 5 MG Tab PO PRN (20:38)
[2022-09-29] MEDS: Insulin Lispro 100 Unit/ML 3 ML KwikPen SUBCUT SCH ×4 (09:01→20:32)
[2022-09-29] MEDS ORDERED: Magnesium Sulfate/Water 2 GM in Premix Bag 1 BAG IV ONE (09:29)
[2022-09-29] MEDS ORDERED: Sodium Phosphate 30 MMOLE in Sodium Chloride 0.9% 250 ML IV ONE (09:29)
[2022-09-29] MEDS: Nicotine 14 MG/24 Hr Patch TRDERM SCH (10:36)
[2022-09-29] MEDS: Sertraline 25 MG Tab PO SCH (10:36)
[2022-09-29] MEDS: oxyCODONE 5 MG Tab PO PRN ×2 (10:36→19:58)
[2022-09-29] MEDS: Polyethylene Glycol 3350 Powder 17 GM Packet PO SCH (10:36)
[2022-09-29] MEDS: Rosuvastatin 10 MG Tab PO SCH (10:37)
[2022-09-29] MEDS: Losartan 50 MG Tab PO SCH (10:37)
[2022-09-29] MEDS: Heparin Sodium 5,000 Units/ML Vial SUBCUT SCH (14:23)
[2022-09-29] MEDS: Clopidogrel 75 MG Tab PO SCH (14:23)
[2022-09-29] MEDS: Acetaminophen 325 MG Tab PO PRN (14:50)
[2022-09-29] MEDS: Gabapentin 300 MG Cap PO SCH (20:02)
[2022-09-30] MEDS: Heparin Sodium 5,000 Units/ML Vial SUBCUT SCH (01:14)
[2022-09-30] MEDS: Acetaminophen 325 MG Tab PO PRN ×2 (01:14→20:15)
[2022-09-30] MEDS: Nicotine 14 MG/24 Hr Patch TRDERM SCH (10:04)
[2022-09-30] MEDS: Losartan 50 MG Tab PO SCH (10:06)
[2022-09-30] MEDS: oxyCODONE 5 MG Tab PO PRN ×3 (10:11→22:43)
[2022-09-30] MEDS: Rosuvastatin 10 MG Tab PO SCH (10:12)
[2022-09-30] MEDS: Sodium Chloride 0.9% 1,000 ML IV SCH ×2 (10:12→20:16)
[2022-09-30] MEDS: Clopidogrel 75 MG Tab PO SCH (10:12)
[2022-09-30] MEDS: Sertraline 25 MG Tab PO SCH (10:12)
[2022-09-30] MEDS ORDERED: Polyethylene Glycol 3350 Powder 17 GM Packet PO PRN (10:17)
[2022-09-30] MEDS: Insulin Lispro 100 Unit/ML 3 ML KwikPen SUBCUT SCH ×4 (11:00→22:53)
[2022-09-30] MEDS: Polyethylene Glycol 3350 Powder 17 GM Packet PO SCH (12:22)
[2022-09-30] MEDS ORDERED: Sodium Ferric Gluconate Cmplex 125 MG in Sodium Chloride 0.9% 100 ML IV ONE (15:00)
[2022-09-30] MEDS: Gabapentin 300 MG Cap PO SCH (20:15)
[2022-10-01] MEDS: Acetaminophen 325 MG Tab PO PRN ×2 (03:22→18:05)
[2022-10-01] MEDS: Insulin Lispro 100 Unit/ML 3 ML KwikPen SUBCUT SCH ×4 (07:52→23:07)
[2022-10-01] MEDS: Losartan 50 MG Tab PO SCH (09:48)
[2022-10-01] MEDS: Clopidogrel 75 MG Tab PO SCH (09:49)
[2022-10-01] MEDS: Rosuvastatin 10 MG Tab PO SCH (09:49)
[2022-10-01] MEDS: Sertraline 25 MG Tab PO SCH (09:50)
[2022-10-01] MEDS: Nicotine 14 MG/24 Hr Patch TRDERM SCH (09:50)
[2022-10-01] MEDS: Heparin Sodium 5,000 Units/ML Vial SUBCUT SCH ×2 (14:16→21:39)
[2022-10-01] MEDS: oxyCODONE 5 MG Tab PO PRN ×2 (15:29→23:07)
[2022-10-01] MEDS: Gabapentin 300 MG Cap PO SCH (21:39)
[2022-10-02] MEDS: Acetaminophen 325 MG Tab PO PRN (01:22)
[2022-10-02] MEDS: Heparin Sodium 5,000 Units/ML Vial SUBCUT SCH ×3 (06:35→21:37)
[2022-10-02] MEDS: Insulin Lispro 100 Unit/ML 3 ML KwikPen SUBCUT SCH ×4 (06:35→21:37)
[2022-10-02] MEDS: oxyCODONE 5 MG Tab PO PRN ×3 (06:44→21:38)
[2022-10-02] MEDS: Rosuvastatin 10 MG Tab PO SCH (08:35)
[2022-10-02] MEDS: Clopidogrel 75 MG Tab PO SCH (08:35)
[2022-10-02] MEDS: Sertraline 25 MG Tab PO SCH (08:35)
[2022-10-02] MEDS: Losartan 50 MG Tab PO SCH (08:35)
[2022-10-02] MEDS: Nicotine 14 MG/24 Hr Patch TRDERM SCH (08:35)
[2022-10-02] MEDS: Gabapentin 300 MG Cap PO SCH (21:38)
[2022-10-03] MEDS: Acetaminophen 325 MG Tab PO PRN ×3 (00:32→23:28)
[2022-10-03] MEDS: Heparin Sodium 5,000 Units/ML Vial SUBCUT SCH ×3 (05:56→21:01)
[2022-10-03] MEDS: Insulin Lispro 100 Unit/ML 3 ML KwikPen SUBCUT SCH ×4 (07:31→21:01)
[2022-10-03] MEDS: Rosuvastatin 10 MG Tab PO SCH (08:50)
[2022-10-03] MEDS: Sertraline 25 MG Tab PO SCH (08:50)
[2022-10-03] MEDS: Clopidogrel 75 MG Tab PO SCH (08:50)
[2022-10-03] MEDS: Losartan 50 MG Tab PO SCH (08:50)
[2022-10-03] MEDS: Nicotine 14 MG/24 Hr Patch TRDERM SCH (08:51)
[2022-10-03] MEDS ORDERED: Furosemide 40 MG/4 ML VIAL IVPUSH ONE (10:18)
[2022-10-03] MEDS ORDERED: Furosemide 20 MG/2 ML VIAL IVPUSH ONE (17:45)
[2022-10-03] MEDS: Gabapentin 300 MG Cap PO SCH (21:01)
[2022-10-03] MEDS: oxyCODONE 5 MG Tab PO PRN (21:12)
[2022-10-04] MEDS: Heparin Sodium 5,000 Units/ML Vial SUBCUT SCH ×3 (05:00→21:19)
[2022-10-04] MEDS: Insulin Lispro 100 Unit/ML 3 ML KwikPen SUBCUT SCH ×4 (06:30→21:20)
[2022-10-04] MEDS ORDERED: Furosemide 40 MG/4 ML VIAL IVPUSH ONE (08:09)
[2022-10-04] MEDS: Clopidogrel 75 MG Tab PO SCH (09:18)
[2022-10-04] MEDS: Acetaminophen 325 MG Tab PO PRN ×3 (09:18→23:27)
[2022-10-04] MEDS: Losartan 50 MG Tab PO SCH (09:20)
[2022-10-04] MEDS: Rosuvastatin 10 MG Tab PO SCH (09:20)
[2022-10-04] MEDS: Sertraline 25 MG Tab PO SCH (09:20)
[2022-10-04] MEDS: Nicotine 14 MG/24 Hr Patch TRDERM SCH (09:21)
[2022-10-04] MEDS ORDERED: Albuterol/Ipratropium 3.0-0.5 MG/3 ML Neb Soln NEB ONE (09:31)
[2022-10-04] MEDS ORDERED: Albuterol/Ipratropium 3.0-0.5 MG/3 ML Neb Soln NEB PRN (09:31)
[2022-10-04] MEDS ORDERED: Furosemide 20 MG/2 ML VIAL IVPUSH ONE ×2 (15:00→16:32)
[2022-10-04] MEDS: oxyCODONE 5 MG Tab PO PRN (21:19)
[2022-10-04] MEDS: Gabapentin 300 MG Cap PO SCH (21:19)
[2022-10-05] MEDS: Heparin Sodium 5,000 Units/ML Vial SUBCUT SCH (05:11)
[2022-10-05] MEDS: Insulin Lispro 100 Unit/ML 3 ML KwikPen SUBCUT SCH ×2 (06:41→11:36)
[2022-10-05] MEDS ORDERED: Furosemide 20 MG/2 ML VIAL IVPUSH ONE (07:19)
[2022-10-05] MEDS: Acetaminophen 325 MG Tab PO PRN (08:13)
[2022-10-05] MEDS: Nicotine 14 MG/24 Hr Patch TRDERM SCH (08:14)
[2022-10-05] MEDS: Losartan 50 MG Tab PO SCH (08:14)
[2022-10-05] MEDS: Rosuvastatin 10 MG Tab PO SCH (08:14)
[2022-10-05] MEDS: Sertraline 25 MG Tab PO SCH (08:14)
[2022-10-05] MEDS: Clopidogrel 75 MG Tab PO SCH (08:14)
== END 2022-10-05 12:20 | DRG 536 ==
LOC: JD.ED 16:04 → JD.MS 09-28 07:57
PROVIDERS: ADMIT Internal Medicine Cardiovascular Disease; ATTEND Internal Medicine Cardiovascular Disease
DX: S32.592A Other specified fracture of left pubis, initial encounter for closed fracture (principal); S32.392A Other fracture of left ilium, initial encounter for closed fracture; S32.810A Multiple fractures of pelvis with stable disruption of pelvic ring, initial encounter for closed fracture; S22.41XA Multiple fractures of ribs, right side, initial encounter for closed fracture; E87.1 Hypo-osmolality and hyponatremia; J90 Pleural effusion, not elsewhere classified; J98.11 Atelectasis; F17.210 Nicotine dependence, cigarettes, uncomplicated; Z79.02 Long term (current) use of antithrombotics/antiplatelets; Z20.822 Contact with and (suspected) exposure to COVID-19; W01.0XXA Fall on same level from slipping, tripping and stumbling without subsequent striking against object, initial encounter; Z66 Do not resuscitate; R62.7 Adult failure to thrive; R90.89 Other abnormal findings on diagnostic imaging of central nervous system; E78.5 Hyperlipidemia, unspecified; I10 Essential (primary) hypertension; I73.9 Peripheral vascular disease, unspecified; J44.9 Chronic obstructive pulmonary disease, unspecified; K59.09 Other constipation; K21.9 Gastro-esophageal reflux disease without esophagitis; M54.9 Dorsalgia, unspecified; G89.29 Other chronic pain; F32.89 Other specified depressive episodes; E83.42 Hypomagnesemia; E83.39 Other disorders of phosphorus metabolism; E78.00 Pure hypercholesterolemia, unspecified; E11.42 Type 2 diabetes mellitus with diabetic polyneuropathy; D64.9 Anemia, unspecified; E11.51 Type 2 diabetes mellitus with diabetic peripheral angiopathy without gangrene; F17.200 Nicotine dependence, unspecified, uncomplicated; Z79.01 Long term (current) use of anticoagulants; Z22.322 Carrier or suspected carrier of Methicillin resistant Staphylococcus aureus; Z79.899 Other long term (current) drug therapy; Z85.51 Personal history of malignant neoplasm of bladder; W19.XXXA Unspecified fall, initial encounter; Y92.009 Unspecified place in unspecified non-institutional (private) residence as the place of occurrence of the external cause
CPT/HCPCS: 36415 ×2; 70450; 71045; 72100; 72192; 73502; 74177; 80053; 81001; 83036; 83605; 83690; 84484; 85025; 93005; 96360; 96361; 99285; J7030; 70551; 70551-26; 71046; 71046-26; 80048; 82947; 83540; 83735; 84100; 84466; 85014; 85018; 86140; 87641; 94640; 94760; 94761; 97110-GO; 97116-GP; 97162-GP; 97166-GO; 97530-GO; 97535-GO; A9270-GY; J1644; J1815; J1940; J2270; J2916; J3475; J3490; J7050; J7620-GY; U0002

== ENCOUNTER 2022-10-19 20:44 | Inpatient (IN) | payer MEDICARE, BC ==
[2022-10-19] MEDS ORDERED: Sodium Chloride 0.9% 10 ML Syringe FLUSH PRN (21:20)
[2022-10-19] MEDS ORDERED: Albuterol/Ipratropium 3.0-0.5 MG/3 ML Neb Soln NEB ONE (21:20)
[2022-10-19] MEDS ORDERED: methylPREDNISolone Sodium Succinate 125 MG/2 ML SDV IVPUSH ONE (21:20)
[2022-10-19 21:42] LABS: CORONAVIRUS COVID-19 NAA NEGATIVE (NEGATIVE)
[2022-10-19] MEDS ORDERED: Piperacillin/Tazobactam 4.5 GM in Sodium Chloride 0.9% 100 ML IV ONE (23:02)
[2022-10-19] MEDS ORDERED: Acetaminophen/oxyCODONE 325-5 MG Tab PO ONE (23:34)
[2022-10-20] MEDS ORDERED: Iopamidol 755 Mg/ML 100 ML Bottle IVPUSH ONE (00:50)
[2022-10-20] MEDS ORDERED: VANCOMYCIN IV ONE (03:11)
[2022-10-20] MEDS ORDERED: SODIUM CHLORIDE 0.9% IV ONE (03:11)
[2022-10-20] MEDS ORDERED: Albuterol 0.083% 2.5 MG/3 ML Neb Soln ONE (03:52)
[2022-10-20] MEDS: Albuterol 0.083% 2.5 MG/3 ML Neb Soln NEB SCH ×4 (04:00→20:50)
[2022-10-20] MEDS ORDERED: VANCOmycin 750 MG/150 ML 150 ML IV ONE (04:00)
[2022-10-20] MEDS ORDERED: Piperacillin/Tazobactam 4.5 GM in Sodium Chloride 0.9% 100 ML IV SCH (08:00)
[2022-10-20] MEDS: Piperacillin/Tazobactam 4.5 GM in Sodium Chloride 0.9% 100 ML IV SCH ×2 (08:15→20:42)
[2022-10-20] MEDS: Acetaminophen/oxyCODONE 325-5 MG Tab PO PRN ×2 (10:03→16:43)
[2022-10-20] MEDS ORDERED: Bupivacaine 0.5% 10 ML SDV INJECT ONE ×2 (12:01→14:01)
[2022-10-20] MEDS ORDERED: fentaNYL 100 MCG/2 ML SDV IVPUSH ONE (12:35)
[2022-10-20] MEDS ORDERED: Propofol 200 MG/20 ML SDV ONE (13:45)
[2022-10-20] MEDS: fentaNYL 100 MCG/2 ML SDV IVPUSH ONE ×2 (14:53→16:14)
[2022-10-20] MEDS ORDERED: HYDROmorphone 0.5 MG/0.5 ML Syringe IVPUSH PRN (16:00)
[2022-10-20] MEDS: methylPREDNISolone Sodium Succinate 40 MG/1 ML SDV IVPUSH SCH (17:20)
[2022-10-20] MEDS: Pantoprazole 40 MG Vial IVPUSH SCH (17:20)
[2022-10-20] MEDS: Lidocaine 4% 1 each Patch TOP SCH (17:21)
[2022-10-20] MEDS: Insulin Lispro 100 Unit/ML 3 ML KwikPen SUBCUT SCH ×2 (17:39→20:44)
[2022-10-20] MEDS ORDERED: Psyllium Husk Powder Sugar Free 5.85 GM Packet PO PRN (17:45)
[2022-10-20] MEDS ORDERED: Ondansetron 4 MG/2 ML SDV IVPUSH PRN (17:45)
[2022-10-20] MEDS ORDERED: hydrALAZINE 20 MG/ML SDV IVPUSH PRN (17:45)
[2022-10-20] MEDS: Albuterol/Ipratropium 3.0-0.5 MG/3 ML Neb Soln NEB SCH ×2 (18:14→20:50)
[2022-10-20] MEDS: Acetaminophen 325 MG Tab PO SCH ×2 (19:08→23:03)
[2022-10-20] MEDS: Sertraline 25 MG Tab PO SCH (19:09)
[2022-10-20] MEDS: Heparin Sodium 5,000 Units/ML Vial SUBCUT SCH (19:09)
[2022-10-20] MEDS: Nicotine 14 MG/24 Hr Patch TRDERM SCH (19:09)
[2022-10-20] MEDS: Losartan 50 MG Tab PO SCH (20:44)
[2022-10-20] MEDS: Gabapentin 300 MG Cap PO SCH (20:44)
[2022-10-20] MEDS: atorvaSTATin 20 MG Tab PO SCH (20:44)
[2022-10-21] MEDS: Heparin Sodium 5,000 Units/ML Vial SUBCUT SCH ×3 (01:15→17:52)
[2022-10-21] MEDS: Albuterol 0.083% 2.5 MG/3 ML Neb Soln NEB SCH ×2 (03:03→09:47)
[2022-10-21] MEDS: Albuterol/Ipratropium 3.0-0.5 MG/3 ML Neb Soln NEB SCH ×4 (03:03→21:08)
[2022-10-21] MEDS: VANCOmycin 500 MG/100 ML 500 MG in Premix Bag 1 BAG IV SCH (05:31)
[2022-10-21] MEDS: Acetaminophen 325 MG Tab PO SCH ×3 (05:31→17:51)
[2022-10-21] MEDS: Insulin Lispro 100 Unit/ML 3 ML KwikPen SUBCUT SCH ×4 (07:52→20:47)
[2022-10-21] MEDS: Piperacillin/Tazobactam 4.5 GM in Sodium Chloride 0.9% 100 ML IV SCH ×2 (07:52→20:09)
[2022-10-21] MEDS: Pantoprazole 40 MG Vial IVPUSH SCH (09:23)
[2022-10-21] MEDS: Losartan 50 MG Tab PO SCH (09:23)
[2022-10-21] MEDS: Nicotine 14 MG/24 Hr Patch TRDERM SCH (09:23)
[2022-10-21] MEDS: Lidocaine 4% 1 each Patch TOP SCH (09:23)
[2022-10-21] MEDS: Clopidogrel 75 MG Tab PO SCH (09:23)
[2022-10-21] MEDS: Sertraline 25 MG Tab PO SCH (09:23)
[2022-10-21] MEDS: methylPREDNISolone Sodium Succinate 40 MG/1 ML SDV IVPUSH SCH (09:23)
[2022-10-21] MEDS ORDERED: Albuterol/Ipratropium 3.0-0.5 MG/3 ML Neb Soln NEB PRN (09:35)
[2022-10-21] MEDS: Acetaminophen/oxyCODONE 325-5 MG Tab PO PRN (18:39)
[2022-10-21] MEDS: atorvaSTATin 20 MG Tab PO SCH (20:14)
[2022-10-21] MEDS: Gabapentin 300 MG Cap PO SCH (20:14)
[2022-10-22] MEDS: Acetaminophen 325 MG Tab PO SCH ×5 (00:15→23:50)
[2022-10-22] MEDS: Albuterol/Ipratropium 3.0-0.5 MG/3 ML Neb Soln NEB SCH ×4 (02:52→21:52)
[2022-10-22] MEDS: Heparin Sodium 5,000 Units/ML Vial SUBCUT SCH ×3 (02:52→18:04)
[2022-10-22] MEDS: Acetaminophen/oxyCODONE 325-5 MG Tab PO PRN ×3 (02:53→20:08)
[2022-10-22] MEDS: VANCOmycin 500 MG/100 ML 500 MG in Premix Bag 1 BAG IV SCH (05:39)
[2022-10-22] MEDS: Insulin Lispro 100 Unit/ML 3 ML KwikPen SUBCUT SCH ×4 (06:52→20:41)
[2022-10-22] MEDS: Clopidogrel 75 MG Tab PO SCH (08:37)
[2022-10-22] MEDS: Pantoprazole 40 MG Vial IVPUSH SCH (08:37)
[2022-10-22] MEDS: methylPREDNISolone Sodium Succinate 40 MG/1 ML SDV IVPUSH SCH (08:37)
[2022-10-22] MEDS: Nicotine 14 MG/24 Hr Patch TRDERM SCH (08:38)
[2022-10-22] MEDS: Sertraline 25 MG Tab PO SCH (08:38)
[2022-10-22] MEDS: Losartan 50 MG Tab PO SCH (08:38)
[2022-10-22] MEDS: Lidocaine 4% 1 each Patch TOP SCH (08:38)
[2022-10-22] MEDS: Piperacillin/Tazobactam 4.5 GM in Sodium Chloride 0.9% 100 ML IV SCH ×2 (08:39→20:03)
[2022-10-22] MEDS: atorvaSTATin 20 MG Tab PO SCH (20:07)
[2022-10-22] MEDS: Gabapentin 300 MG Cap PO SCH (20:08)
[2022-10-23] MEDS: Heparin Sodium 5,000 Units/ML Vial SUBCUT SCH ×3 (03:09→17:46)
[2022-10-23] MEDS: Albuterol/Ipratropium 3.0-0.5 MG/3 ML Neb Soln NEB SCH ×4 (03:15→22:10)
[2022-10-23] MEDS: VANCOmycin 500 MG/100 ML 500 MG in Premix Bag 1 BAG IV SCH (05:40)
[2022-10-23] MEDS: Acetaminophen 325 MG Tab PO SCH ×3 (05:43→17:46)
[2022-10-23] MEDS: Docusate Sodium 100 MG Cap PO PRN (05:43)
[2022-10-23] MEDS: Insulin Lispro 100 Unit/ML 3 ML KwikPen SUBCUT SCH ×4 (06:38→21:10)
[2022-10-23] MEDS: Losartan 50 MG Tab PO SCH (08:42)
[2022-10-23] MEDS: Piperacillin/Tazobactam 4.5 GM in Sodium Chloride 0.9% 100 ML IV SCH ×2 (08:42→20:01)
[2022-10-23] MEDS: Clopidogrel 75 MG Tab PO SCH (08:43)
[2022-10-23] MEDS: Sertraline 25 MG Tab PO SCH (08:43)
[2022-10-23] MEDS: Nicotine 14 MG/24 Hr Patch TRDERM SCH (08:43)
[2022-10-23] MEDS: Lidocaine 4% 1 each Patch TOP SCH (08:43)
[2022-10-23] MEDS: methylPREDNISolone Sodium Succinate 40 MG/1 ML SDV IVPUSH SCH (08:44)
[2022-10-23] MEDS: Pantoprazole 40 MG Vial IVPUSH SCH (08:44)
[2022-10-23] MEDS: Acetaminophen/oxyCODONE 325-5 MG Tab PO PRN (16:16)
[2022-10-23] MEDS: Gabapentin 300 MG Cap PO SCH (20:02)
[2022-10-23] MEDS: atorvaSTATin 20 MG Tab PO SCH (20:02)
[2022-10-24] MEDS: Acetaminophen 325 MG Tab PO SCH ×4 (00:03→18:02)
[2022-10-24] MEDS: Heparin Sodium 5,000 Units/ML Vial SUBCUT SCH ×3 (03:09→18:01)
[2022-10-24] MEDS: Albuterol/Ipratropium 3.0-0.5 MG/3 ML Neb Soln NEB SCH ×4 (03:14→21:11)
[2022-10-24] MEDS: Acetaminophen/oxyCODONE 325-5 MG Tab PO PRN ×4 (05:03→23:27)
[2022-10-24] MEDS: VANCOmycin 500 MG/100 ML 500 MG in Premix Bag 1 BAG IV SCH (05:40)
[2022-10-24] MEDS: Docusate Sodium 100 MG Cap PO PRN (05:49)
[2022-10-24] MEDS: Insulin Lispro 100 Unit/ML 3 ML KwikPen SUBCUT SCH ×4 (07:17→20:56)
[2022-10-24] MEDS: Nicotine 14 MG/24 Hr Patch TRDERM SCH (08:54)
[2022-10-24] MEDS: Sertraline 25 MG Tab PO SCH (08:54)
[2022-10-24] MEDS: Losartan 50 MG Tab PO SCH (08:54)
[2022-10-24] MEDS: Clopidogrel 75 MG Tab PO SCH (08:54)
[2022-10-24] MEDS: Piperacillin/Tazobactam 4.5 GM in Sodium Chloride 0.9% 100 ML IV SCH ×2 (08:55→20:30)
[2022-10-24] MEDS: methylPREDNISolone Sodium Succinate 40 MG/1 ML SDV IVPUSH SCH (08:55)
[2022-10-24] MEDS: Lidocaine 4% 1 each Patch TOP SCH (08:55)
[2022-10-24] MEDS: Pantoprazole 40 MG Vial IVPUSH SCH (08:55)
[2022-10-24] MEDS: Gabapentin 300 MG Cap PO SCH (20:30)
[2022-10-24] MEDS: atorvaSTATin 20 MG Tab PO SCH (20:30)
[2022-10-25] MEDS: Albuterol/Ipratropium 3.0-0.5 MG/3 ML Neb Soln NEB SCH ×4 (02:44→20:09)
[2022-10-25] MEDS: Acetaminophen 325 MG Tab PO SCH ×2 (04:35→05:22)
[2022-10-25] MEDS: Heparin Sodium 5,000 Units/ML Vial SUBCUT SCH ×3 (05:23→17:40)
[2022-10-25] MEDS: predniSONE 20 MG Tab PO SCH (06:34)
[2022-10-25] MEDS: Acetaminophen/oxyCODONE 325-5 MG Tab PO PRN ×3 (08:59→19:29)
[2022-10-25] MEDS: Sertraline 25 MG Tab PO SCH (09:00)
[2022-10-25] MEDS: Losartan 50 MG Tab PO SCH (09:00)
[2022-10-25] MEDS: Clopidogrel 75 MG Tab PO SCH (09:01)
[2022-10-25] MEDS: Pantoprazole 40 MG Vial IVPUSH SCH (09:01)
[2022-10-25] MEDS: Nicotine 14 MG/24 Hr Patch TRDERM SCH (09:02)
[2022-10-25] MEDS: Pantoprazole 40 MG Tab.CR PO SCH (09:02)
[2022-10-25] MEDS: Lidocaine 4% 1 each Patch TOP SCH (09:02)
[2022-10-25] MEDS: Piperacillin/Tazobactam 4.5 GM in Sodium Chloride 0.9% 100 ML IV SCH ×2 (09:03→21:18)
[2022-10-25] MEDS: Insulin Lispro 100 Unit/ML 3 ML KwikPen SUBCUT SCH ×4 (09:08→22:27)
[2022-10-25] MEDS: atorvaSTATin 20 MG Tab PO SCH (21:19)
[2022-10-25] MEDS: Gabapentin 300 MG Cap PO SCH (21:19)
[2022-10-26] MEDS: Acetaminophen/oxyCODONE 325-5 MG Tab PO PRN ×3 (00:57→20:05)
[2022-10-26] MEDS: Heparin Sodium 5,000 Units/ML Vial SUBCUT SCH ×4 (01:00→17:14)
[2022-10-26] MEDS: Acetaminophen 325 MG Tab PO PRN ×2 (02:36→21:40)
[2022-10-26] MEDS: Albuterol/Ipratropium 3.0-0.5 MG/3 ML Neb Soln NEB SCH ×4 (03:05→20:18)
[2022-10-26] MEDS: predniSONE 20 MG Tab PO SCH (06:14)
[2022-10-26] MEDS: Lidocaine 4% 1 each Patch TOP SCH (08:40)
[2022-10-26] MEDS: Piperacillin/Tazobactam 4.5 GM in Sodium Chloride 0.9% 100 ML IV SCH ×2 (08:41→20:05)
[2022-10-26] MEDS: Nicotine 14 MG/24 Hr Patch TRDERM SCH (08:49)
[2022-10-26] MEDS: Losartan 50 MG Tab PO SCH (08:50)
[2022-10-26] MEDS: Clopidogrel 75 MG Tab PO SCH (08:51)
[2022-10-26] MEDS: Pantoprazole 40 MG Tab.CR PO SCH (08:51)
[2022-10-26] MEDS: Sertraline 25 MG Tab PO SCH (08:51)
[2022-10-26] MEDS: Insulin Lispro 100 Unit/ML 3 ML KwikPen SUBCUT SCH ×4 (08:52→21:27)
[2022-10-26] MEDS ORDERED: Sodium Chloride 0.9% 10 ML Syringe FLUSH PRN (12:26)
[2022-10-26] MEDS ORDERED: Iopamidol 755 MG/ML 50 ML Bottle IVPUSH ONE ×2 (12:26)
[2022-10-26] MEDS ORDERED: Sodium Chloride 0.9% 100 ML IV SCH (12:30)
[2022-10-26] MEDS: atorvaSTATin 20 MG Tab PO SCH (20:06)
[2022-10-26] MEDS: Gabapentin 300 MG Cap PO SCH (20:07)
[2022-10-27] MEDS: Albuterol/Ipratropium 3.0-0.5 MG/3 ML Neb Soln NEB SCH ×4 (02:30→20:32)
[2022-10-27] MEDS: Heparin Sodium 5,000 Units/ML Vial SUBCUT SCH ×3 (02:56→17:10)
[2022-10-27] MEDS: Acetaminophen/oxyCODONE 325-5 MG Tab PO PRN ×4 (02:56→17:51)
[2022-10-27] MEDS: predniSONE 20 MG Tab PO SCH (08:29)
[2022-10-27] MEDS: Sertraline 25 MG Tab PO SCH (08:29)
[2022-10-27] MEDS: Pantoprazole 40 MG Tab.CR PO SCH (08:29)
[2022-10-27] MEDS: Clopidogrel 75 MG Tab PO SCH (08:30)
[2022-10-27] MEDS: Nicotine 14 MG/24 Hr Patch TRDERM SCH (08:30)
[2022-10-27] MEDS: Lidocaine 4% 1 each Patch TOP SCH (08:31)
[2022-10-27] MEDS: Insulin Lispro 100 Unit/ML 3 ML KwikPen SUBCUT SCH ×4 (08:32→21:02)
[2022-10-27] MEDS: Piperacillin/Tazobactam 4.5 GM in Sodium Chloride 0.9% 100 ML IV SCH ×2 (08:33→19:50)
[2022-10-27] MEDS: Losartan 50 MG Tab PO SCH (08:42)
[2022-10-27] MEDS: Acetaminophen 325 MG Tab PO PRN (16:13)
[2022-10-27] MEDS ORDERED: fentaNYL 100 MCG/2 ML SDV IVPUSH ONE (18:51)
[2022-10-27] MEDS: atorvaSTATin 20 MG Tab PO SCH ×2 (19:51→20:06)
[2022-10-27] MEDS: Gabapentin 300 MG Cap PO SCH (20:02)
[2022-10-28] MEDS: Acetaminophen 325 MG Tab PO PRN ×2 (01:17→20:29)
[2022-10-28] MEDS: Heparin Sodium 5,000 Units/ML Vial SUBCUT SCH (01:17)
[2022-10-28] MEDS: Albuterol/Ipratropium 3.0-0.5 MG/3 ML Neb Soln NEB SCH ×4 (02:18→21:48)
[2022-10-28] MEDS: Acetaminophen/oxyCODONE 325-5 MG Tab PO PRN ×2 (03:28→08:27)
[2022-10-28] MEDS: Insulin Lispro 100 Unit/ML 3 ML KwikPen SUBCUT SCH ×4 (08:18→21:20)
[2022-10-28] MEDS: Piperacillin/Tazobactam 4.5 GM in Sodium Chloride 0.9% 100 ML IV SCH ×2 (08:28→20:29)
[2022-10-28] MEDS ORDERED: Midazolam 1 MG/ML 2 ML SDV ONE (10:17)
[2022-10-28] MEDS ORDERED: Propofol 200 MG/20 ML SDV ONE (10:17)
[2022-10-28] MEDS ORDERED: Lidocaine 1% 2 ML ONE (10:17)
[2022-10-28] MEDS ORDERED: fentaNYL 100 MCG/2 ML SDV ONE (10:17)
[2022-10-28] MEDS ORDERED: Bupivacaine 0.5% 30 ML SDV ONE (10:55)
[2022-10-28] MEDS: predniSONE 20 MG Tab PO SCH (12:37)
[2022-10-28] MEDS: Pantoprazole 40 MG Tab.CR PO SCH (12:38)
[2022-10-28] MEDS: Nicotine 14 MG/24 Hr Patch TRDERM SCH (12:38)
[2022-10-28] MEDS: Losartan 50 MG Tab PO SCH (12:38)
[2022-10-28] MEDS: Lidocaine 4% 1 each Patch TOP SCH (12:38)
[2022-10-28] MEDS: Clopidogrel 75 MG Tab PO SCH (12:38)
[2022-10-28] MEDS: Sertraline 25 MG Tab PO SCH (12:39)
[2022-10-28] MEDS: Gabapentin 300 MG Cap PO SCH (20:30)
[2022-10-28] MEDS: atorvaSTATin 20 MG Tab PO SCH (20:30)
[2022-10-29] MEDS: Heparin Sodium 5,000 Units/ML Vial SUBCUT SCH ×3 (02:56→17:58)
[2022-10-29] MEDS: Albuterol/Ipratropium 3.0-0.5 MG/3 ML Neb Soln NEB SCH ×4 (03:28→21:08)
[2022-10-29] MEDS: Acetaminophen/oxyCODONE 325-5 MG Tab PO PRN ×5 (03:59→23:26)
[2022-10-29] MEDS: Insulin Lispro 100 Unit/ML 3 ML KwikPen SUBCUT SCH ×4 (08:52→20:23)
[2022-10-29] MEDS: Piperacillin/Tazobactam 4.5 GM in Sodium Chloride 0.9% 100 ML IV SCH ×2 (08:52→19:25)
[2022-10-29] MEDS: Nicotine 14 MG/24 Hr Patch TRDERM SCH (08:52)
[2022-10-29] MEDS: predniSONE 20 MG Tab PO SCH (08:53)
[2022-10-29] MEDS: Losartan 50 MG Tab PO SCH (08:53)
[2022-10-29] MEDS: Pantoprazole 40 MG Tab.CR PO SCH (08:53)
[2022-10-29] MEDS: Clopidogrel 75 MG Tab PO SCH (08:53)
[2022-10-29] MEDS: Lidocaine 4% 1 each Patch TOP SCH (08:53)
[2022-10-29] MEDS: Sertraline 25 MG Tab PO SCH (08:53)
[2022-10-29] MEDS: atorvaSTATin 20 MG Tab PO SCH (20:22)
[2022-10-29] MEDS: Gabapentin 300 MG Cap PO SCH (20:22)
[2022-10-30] MEDS: Heparin Sodium 5,000 Units/ML Vial SUBCUT SCH ×3 (01:05→17:04)
[2022-10-30] MEDS: Acetaminophen 325 MG Tab PO PRN ×2 (01:06→22:52)
[2022-10-30] MEDS: Albuterol/Ipratropium 3.0-0.5 MG/3 ML Neb Soln NEB SCH (03:32)
[2022-10-30] MEDS: Acetaminophen/oxyCODONE 325-5 MG Tab PO PRN ×4 (05:27→21:17)
[2022-10-30] MEDS: Insulin Lispro 100 Unit/ML 3 ML KwikPen SUBCUT SCH ×4 (07:13→21:17)
[2022-10-30] MEDS: Piperacillin/Tazobactam 4.5 GM in Sodium Chloride 0.9% 100 ML IV SCH ×2 (08:26→20:15)
[2022-10-30] MEDS: Losartan 50 MG Tab PO SCH (08:26)
[2022-10-30] MEDS: Clopidogrel 75 MG Tab PO SCH (08:27)
[2022-10-30] MEDS: predniSONE 20 MG Tab PO SCH (08:27)
[2022-10-30] MEDS: Pantoprazole 40 MG Tab.CR PO SCH (08:28)
[2022-10-30] MEDS: Nicotine 14 MG/24 Hr Patch TRDERM SCH (08:28)
[2022-10-30] MEDS: Sertraline 25 MG Tab PO SCH (08:28)
[2022-10-30] MEDS: Lidocaine 4% 1 each Patch TOP SCH (08:31)
[2022-10-30] MEDS: atorvaSTATin 20 MG Tab PO SCH (21:16)
[2022-10-30] MEDS: Gabapentin 300 MG Cap PO SCH (21:17)
[2022-10-31] MEDS: Acetaminophen/oxyCODONE 325-5 MG Tab PO PRN ×2 (01:28→08:50)
[2022-10-31] MEDS: Heparin Sodium 5,000 Units/ML Vial SUBCUT SCH ×3 (01:28→19:26)
[2022-10-31] MEDS: predniSONE 20 MG Tab PO SCH (06:05)
[2022-10-31] MEDS: Piperacillin/Tazobactam 4.5 GM in Sodium Chloride 0.9% 100 ML IV SCH ×2 (08:43→19:46)
[2022-10-31] MEDS: Acetaminophen 325 MG Tab PO PRN (08:49)
[2022-10-31] MEDS: Clopidogrel 75 MG Tab PO SCH (08:54)
[2022-10-31] MEDS: Losartan 50 MG Tab PO SCH (08:55)
[2022-10-31] MEDS: Pantoprazole 40 MG Tab.CR PO SCH (08:55)
[2022-10-31] MEDS: Sertraline 25 MG Tab PO SCH (08:56)
[2022-10-31] MEDS: Nicotine 14 MG/24 Hr Patch TRDERM SCH (08:56)
[2022-10-31] MEDS: Lidocaine 4% 1 each Patch TOP SCH (08:58)
[2022-10-31] MEDS: Insulin Lispro 100 Unit/ML 3 ML KwikPen SUBCUT SCH ×4 (09:03→21:23)
[2022-10-31] MEDS ORDERED: Acetaminophen/HYDROcodone 325-5 MG Tab PO SCH (14:30)
[2022-10-31] MEDS: Acetaminophen/oxyCODONE 325-5 MG Tab PO SCH ×2 (15:38→19:46)
[2022-10-31] MEDS: Gabapentin 300 MG Cap PO SCH (20:27)
[2022-10-31] MEDS: atorvaSTATin 20 MG Tab PO SCH (20:27)
[2022-10-31 21:24] LABS: CORONAVIRUS COVID-19 NAA NEGATIVE (NEGATIVE)
[2022-11-01] MEDS: Acetaminophen/oxyCODONE 325-5 MG Tab PO SCH ×4 (00:05→09:33)
[2022-11-01] MEDS: Heparin Sodium 5,000 Units/ML Vial SUBCUT SCH ×2 (02:03→08:51)
[2022-11-01] MEDS: predniSONE 20 MG Tab PO SCH (06:30)
[2022-11-01] MEDS: Insulin Lispro 100 Unit/ML 3 ML KwikPen SUBCUT SCH (06:53)
[2022-11-01] MEDS: Piperacillin/Tazobactam 4.5 GM in Sodium Chloride 0.9% 100 ML IV SCH (08:43)
[2022-11-01] MEDS: Pantoprazole 40 MG Tab.CR PO SCH (08:53)
[2022-11-01] MEDS: Sertraline 25 MG Tab PO SCH (08:53)
[2022-11-01] MEDS: Losartan 50 MG Tab PO SCH (08:53)
[2022-11-01] MEDS: Clopidogrel 75 MG Tab PO SCH (08:53)
[2022-11-01] MEDS: Nicotine 14 MG/24 Hr Patch TRDERM SCH (08:54)
[2022-11-01] MEDS: Lidocaine 4% 1 each Patch TOP SCH (08:54)
== END 2022-11-01 10:30 | DRG 180 ==
LOC: JD.ED 20:44 → JD.MS 10-20 02:24 → JD.ICU 10-20 19:33 → JD.MS 10-26
PROVIDERS: ADMIT Internal Medicine; ATTEND Internal Medicine
PROC: 0W9B30Z Drainage of Left Pleural Cavity with Drainage Device, Percutaneous Approach (ICD-10-PCS; 2022-10-21)
PROC: 0W9B3ZZ Drainage of Left Pleural Cavity, Percutaneous Approach (ICD-10-PCS; 2022-10-21)
PROC: 0W9B00Z Drainage of Left Pleural Cavity with Drainage Device, Open Approach (ICD-10-PCS; principal; 2022-10-28)
DX: C34.90 Malignant neoplasm of unspecified part of unspecified bronchus or lung (principal); R09.02 Hypoxemia; S22.41XA Multiple fractures of ribs, right side, initial encounter for closed fracture; J18.9 Pneumonia, unspecified organism; J44.9 Chronic obstructive pulmonary disease, unspecified; J96.21 Acute and chronic respiratory failure with hypoxia; J96.22 Acute and chronic respiratory failure with hypercapnia; J44.0 Chronic obstructive pulmonary disease with (acute) lower respiratory infection; J98.11 Atelectasis; Z79.02 Long term (current) use of antithrombotics/antiplatelets; R64 Cachexia; J95.811 Postprocedural pneumothorax; J91.0 Malignant pleural effusion; C68.0 Malignant neoplasm of urethra; W19.XXXA Unspecified fall, initial encounter; J44.1 Chronic obstructive pulmonary disease with (acute) exacerbation; Z68.1 Body mass index [BMI] 19.9 or less, adult; Z66 Do not resuscitate; E78.00 Pure hypercholesterolemia, unspecified; I10 Essential (primary) hypertension; K59.09 Other constipation; K21.9 Gastro-esophageal reflux disease without esophagitis; E11.649 Type 2 diabetes mellitus with hypoglycemia without coma; W18.30XA Fall on same level, unspecified, initial encounter; E83.42 Hypomagnesemia; D50.9 Iron deficiency anemia, unspecified; E83.39 Other disorders of phosphorus metabolism; E78.5 Hyperlipidemia, unspecified; G89.29 Other chronic pain; Z20.822 Contact with and (suspected) exposure to COVID-19; F32.A Depression, unspecified; E11.40 Type 2 diabetes mellitus with diabetic neuropathy, unspecified; M54.9 Dorsalgia, unspecified; E11.51 Type 2 diabetes mellitus with diabetic peripheral angiopathy without gangrene; Z79.01 Long term (current) use of anticoagulants; Z98.51 Tubal ligation status; Z90.89 Acquired absence of other organs; Z98.890 Other specified postprocedural states; Z79.84 Long term (current) use of oral hypoglycemic drugs; Z79.899 Other long term (current) drug therapy; Z87.891 Personal history of nicotine dependence; Z88.5 Allergy status to narcotic agent
CPT/HCPCS: 0240U; 0241U; 36415; 36600; 71045; 71045-26; 71250; 71250-26; 71260; 71260-26; 71275; 71275-26; 74177; 74177-26; 80048; 80053; 80202; 82728; 82803; 82945; 82947; 83540; 83605; 83615; 83735; 83880; 84157; 84484; 85025; 85027; 85379; 86140; 87040; 87070; 87075; 87205; 87641; 88112; 88305; 88341; 88342; 89050; 93005; 93010; 93306; 94640; 94762; 96365; 96375; 97110-GP; 97162-GP; 97166-GO; 97530-GP; 99100; 99223; 99233; 99239; 99285; 99285-25; A9270-GY; C9113; J1170; J1644; J1815; J2250; J2543; J2704; J2920; J2930; J3010; J3370; J3490; J7512; J7620-GY; Q9967